=== PATIENT | female | born 1950 | race Caucasian/White ===

== ENCOUNTER 2017-05-07 09:16 | Outpatient (CLI) | payer OTHER ==
[~2017-05-07] VITALS: Ht 152.4 cm; Wt 83.5 kg
== END 2017-05-07 09:40 | disposition home or self-care (01) ==
LOC: OFIC 805 09:16
DX: J31.0 Chronic rhinitis (principal); G47.33 Obstructive sleep apnea (adult) (pediatric)

== ENCOUNTER → 2020-03-01 | Outpatient (CLI) | payer OTHER | END | disposition home or self-care (01) | LOC: TOM 10:01 | PROVIDERS: ATTEND Urology | DX: R31.21 Asymptomatic microscopic hematuria (principal) ==